=== PATIENT | male | born 1975 | race Caucasian/White ===

== ENCOUNTER 2016-08-13 21:27 | Emergency (ER) | payer SELFPAY ==
[2016-08-13 21:38] VITALS: TEMP 97.9
--- NOTE | 2016-08-13 23:15 | EDPHY ---
H & P Time Seen by Provider: 08/13/16 22:07 HPI/ROS: CHIEF COMPLAINT: Back Pain HISTORY OF PRESENT ILLNESS: 40-year-old male presents emergency department complaining of mid thoracic back pain x3 days. Patient reports a history of scoliosis. Patient reports the last 3 days he has been more active than usual. He feels a tightness and spasm in his back. He denies trauma, no numbness or tingling in his arms or legs, no loss of control of his bowel or bladder, no fevers. Smoking Status: Current every day smoker Physical Exam: GEN: Awake, alert, oriented, no acute distress RESP: nl resp effort MSK: Back with right-sided paraspinal thoracic pinpoint tenderness to palpation SKIN: No break in skin Constitutional: Initial Vital Signs Temperature (C) 36.6 C 08/13/16 21:35 Heart Rate 83 08/13/16 21:35 Respiratory Rate 18 08/13/16 21:35 Blood Pressure 122/77 H 08/13/16 21:35 O2 Sat (%) 95 08/13/16 21:35 O2 Delivery Mode Room Air Allergies/Adverse Reactions: No Known Allergies Allergy (Verified 05/21/16 19:23) Home Medications: Medication Instructions Recorded Dicyclomine [Bentyl 20 MG (*)] 40 mg PO BID PRN #60 tab 05/17/16 Bupropion HCl [Wellbutrin Xl] 300 mg PO DAILY 05/21/16 buPROPion XL [Wellbutrin 150mg XL] 150 mg PO HS 05/21/16 MDM/Departure - MDM Procedures: Trigger point injection- Trigger point injection done to paraspinal thoracic muscle. Area was cleaned with chlorhexidine, 3 mL of 0.5% Marcaine without epinephrine injected into paraspinal thoracic muscle on right with a 27 gauge 1 inch needle. Patient tolerated this without difficulty. ED Course/Re-evaluation: Trigger point injection performed, lidocaine patch placed. Patient has no evidence of cauda equina syndrome, no evidence of spinal abscess. Patient will be discharged home. - Depart Disposition: Home, Routine, Self-Care Clinical Impression: Back pain Qualifiers: Back pain location: thoracic back pain Chronicity: acute Back pain laterality: right Qualified Code(s): M54.6 - Pain in thoracic spine Condition: Good Instructions: Back Pain (ED) Additional Instructions: Take 600 mg of ibuprofen 3 times per day with food. Ice or heat whichever feels better, gentle range of motion exercises, core strengthening exercises daily. Return to the emergency department for any loss of control of your bowel or bladder, numbness to your groin, fevers. Referrals: NONE *PRIMARY CARE P,. [Primary Care Provider] - As per Instructions
[2016-08-13] MEDS ORDERED: LIDOCAINE 5% 1 EA PATCH TD SCH (23:30)
[2016-08-13 23:31] VITALS: BP 130/77; PULSE 88; RESP 16; O2SAT 96
[2016-08-14] MEDS ORDERED: PATCH REMOVAL 1 EA PATCH TD SCH (21:00)
== END 2016-08-13 23:30 | disposition home or self-care (01) ==
PROC: 3E023BZ Introduction of Anesthetic Agent into Muscle, Percutaneous Approach (ICD-10-PCS; principal; 2016-08-13)
DX: M54.6 Pain in thoracic spine (principal); F17.200 Nicotine dependence, unspecified, uncomplicated

== ENCOUNTER 2016-08-16 05:54 | Emergency (ER) | payer SELFPAY ==
[2016-08-16 06:01] VITALS: TEMP 97.7; O2SAT 95
--- NOTE | 2016-08-16 06:20 | EDPHY ---
H & P Stated Complaint: MID BACK PAIN, GETTING WORSE. ORIGINAL FALL OFF COUNTER 2 WKS AGO. HPI/ROS: HPI CHIEF COMPLAINT: [ ] HISTORY OF PRESENT ILLNESS: [Need 4: Location, Duration, Severity, Quality, Context, Timing Modifying Factors, Associated S&S] Past Medical History: Past Surgical History: Social History: Family History: ROS REVIEW OF SYSTEMS: A comprehensive 10 point review of systems is otherwise negative aside from elements mentioned in the history of present illness. Exam Constitutional triage nursing summary reviewed, vital signs reviewed, awake/ alert. Eyes normal conjunctivae and sclera, EOMI, PERRLA. HENT normal inspection, atraumatic, moist mucus membranes, no epistaxis, neck supple/ no meningismus, no raccoon eyes. Respiratory clear to auscultation bilaterally, normal breath sounds, no respiratory distress, no wheezing. Cardiovascular rate normal, regular rhythm, no murmur, no edema, distal pulses normal. Gastrointestinal soft, non-tender, no rebound, no guarding, normal bowel sounds, no distension, no pulsatile mass. Genitourinary no CVA tenderness. Musculoskeletal no midline vertebral tenderness, full range of motion, no calf swelling, no tenderness of extremities, no meningismus, good pulses, neurovascularly intact. Skin pink, warm, & dry, no rash, skin atraumatic. Neurologic awake, alert and oriented x 3, AAOx3, moves all 4 extremities equally, motor intact, sensory intact, CN II-XII intact, normal cerebellar, normal vision, normal speech. Psychiatric normal mood/affect. Heme/Lymph/Immune no lymphadenopathy. Differential Diagnosis: Medical Decision Making: Re-evaluation: Source: Patient - Personal History Current Tetanus/Diphtheria Vaccine: Yes - Medical/Surgical History Hx Asthma: No Hx Chronic Respiratory Disease: No Hx Diabetes: No Hx Cardiac Disease: No Hx Renal Disease: No Hx Cirrhosis: No Hx Alcoholism: No Hx HIV/AIDS: No Hx Splenectomy or Spleen Trauma: No Other PMH: scoliosis, ptsd, bipolar, adhd - Social History Smoking Status: Current every day smoker Constitutional: Initial Vital Signs Temperature (C) 36.5 C 08/16/16 05:57 Heart Rate 100 08/16/16 05:57 Respiratory Rate 20 08/16/16 05:57 Blood Pressure 127/93 H 08/16/16 05:57 O2 Sat (%) 95 08/16/16 05:57 O2 Delivery Mode Room Air Allergies/Adverse Reactions: No Known Allergies Allergy (Verified 05/21/16 19:23) Home Medications: Medication Instructions Recorded Dicyclomine [Bentyl 20 MG (*)] 40 mg PO BID PRN #60 tab 05/17/16 Bupropion HCl [Wellbutrin Xl] 300 mg PO DAILY 05/21/16 buPROPion XL [Wellbutrin 150mg XL] 150 mg PO HS 05/21/16 Cyclobenzaprine [Flexeril 10 MG 10 mg PO TID PRN #10 tab 08/14/16 (*)] Neurontin 08/16/16 Departure - Departure Referrals: NONE *PRIMARY CARE P,. [Primary Care Provider] - As per Instructions
--- NOTE | 2016-08-16 06:28 | EDPHY ---
H & P Stated Complaint: MID BACK PAIN, GETTING WORSE. ORIGINAL FALL OFF COUNTER 2 WKS AGO. HPI/ROS: HPI CHIEF COMPLAINT: Back pain HISTORY OF PRESENT ILLNESS: This patient 32-year-old male, he presents to the emergency room with midline thoracic back pain. Patient states he was seen here twice for this. Initially was seen and had a trigger point injection that gave him relief in the emergency room however his pain return. He was seen again placed on Flexeril which he has not gotten prescribed. Here today complains of ongoing mid thoracic back pain it does not radiate to his chest, he denies shortness of breath or chest pain. Patient tells me the pain does not radiate he has no numbness or tingling anywhere he has no leg weakness. No saddle anesthesia. The pain is mid thoracic. He tells me this all started after fell off a ledge in custodial landing on his back. This was 2 weeks ago. Past Medical History: Bipolar disorder, PTSD, scoliosis, history of alcohol Past Surgical History: No recent surgical history Social History: denies daily use of drugs alcohol tobacco products he is incarcerated in custodial on a work release program. Family History: Noncontributory ROS REVIEW OF SYSTEMS: A comprehensive 10 point review of systems is otherwise negative aside from elements mentioned in the history of present illness. Exam Constitutional triage nursing summary reviewed, vital signs reviewed, awake/ alert. Eyes normal conjunctivae and sclera, EOMI, PERRLA. HENT normal inspection, atraumatic, moist mucus membranes, no epistaxis, neck supple/ no meningismus, no raccoon eyes. Respiratory clear to auscultation bilaterally, normal breath sounds, no respiratory distress, no wheezing. Cardiovascular rate normal, regular rhythm, no murmur, no edema, distal pulses normal. Gastrointestinal soft, non-tender, no rebound, no guarding, normal bowel sounds, no distension, no pulsatile mass. Genitourinary no CVA tenderness. Musculoskeletal very mild midline thoracic spine back pain, no step-offs, no crepitus , full range of motion, no calf swelling, no tenderness of extremities , no meningismus, good pulses, neurovascularly intact. Skin pink, warm, & dry, no rash, skin atraumatic. Neurologic awake, alert and oriented x 3, AAOx3, moves all 4 extremities equally, motor intact, sensory intact, CN II-XII intact, normal cerebellar, normal vision, normal speech. Psychiatric normal mood/affect. Heme/Lymph/Immune no lymphadenopathy. Differential Diagnosis: includes but is not limited to in a particular order, compression fracture, musculoskeletal back pain, nerve root compression, diskitis, annular tear Medical Decision Making: plan for this patient he 1 needs to have his Flexeril get filled. Also I will perform a thoracic spine x-ray to make sure does not have significant fracture of his back. Re-evaluation: ED x-ray: Thoracic spine: Three view: There appears to be height loss of the lower thoracic spine, unclear if this is acute compression fracture . I will confirm this with a CT scan. This may be the cause of the patient's midline thoracic spine pain. CT scan of the thoracic spine The results of the study are negative for acute significant compression fracture The study was read by Dr. amandeep gonzalez. I viewed the images myself on the PACS system. 0731: patient is resting comfortably here in emergency room in no acute distress. Agreeable for discharge. Follow up with his primary care doctor. X- ray and CT scan do not show acute compression fracture. He has no signs of acute cauda equina syndrome. Source: Patient - Personal History Current Tetanus/Diphtheria Vaccine: Yes - Medical/Surgical History Hx Asthma: No Hx Chronic Respiratory Disease: No Hx Diabetes: No Hx Cardiac Disease: No Hx Renal Disease: No Hx Cirrhosis: No Hx Alcoholism: No Hx HIV/AIDS: No Hx Splenectomy or Spleen Trauma: No Other PMH: scoliosis, ptsd, bipolar, adhd - Social History Smoking Status: Current every day smoker Constitutional: Initial Vital Signs Temperature (C) 36.5 C 08/16/16 05:57 Heart Rate 100 08/16/16 05:57 Respiratory Rate 20 08/16/16 05:57 Blood Pressure 127/93 H 08/16/16 05:57 O2 Sat (%) 95 08/16/16 05:57 O2 Delivery Mode Room Air Allergies/Adverse Reactions: No Known Allergies Allergy (Verified 08/16/16 06:54) Home Medications: Medication Instructions Recorded Dicyclomine [Bentyl 20 MG (*)] 40 mg PO BID PRN #60 tab 05/17/16 Bupropion HCl [Wellbutrin Xl] 300 mg PO DAILY 05/21/16 buPROPion XL [Wellbutrin 150mg XL] 150 mg PO HS 05/21/16 Cyclobenzaprine [Flexeril 10 MG 10 mg PO TID PRN #10 tab 08/14/16 (*)] Neurontin 08/16/16 Departure - Departure Disposition: Home, Routine, Self-Care Clinical Impression: Back pain Qualifiers: Back pain location: thoracic back pain Chronicity: acute Back pain laterality: midline Qualified Code(s): M54.6 - Pain in thoracic spine Condition: Good Instructions: Arthralgia (ED), Back Pain (ED) Additional Instructions: 1. Please get your Flexeril filled. 2. return to the emergency room if you have any worsening symptoms questions or concerns. 3. Please follow up with her primary care doctor. Referrals: NONE *PRIMARY CARE P,. [Primary Care Provider] - As per Instructions
[2016-08-16 07:50] VITALS: BP 125/94; PULSE 74; RESP 18
== END 2016-08-16 07:50 | disposition home or self-care (01) ==
DX: M54.6 Pain in thoracic spine (principal); F17.200 Nicotine dependence, unspecified, uncomplicated